=== PATIENT | female | born 1995 | race Caucasian/White ===

== ENCOUNTER 2019-08-12 18:49 | Emergency (ER) | payer OTHER, SELFPAY ==
[2019-08-12 19:11] VITALS: BP 118/102; PULSE 100; RESP 16; TEMP 36.7; O2SAT 97; BMI 24.0
--- NOTE | 2019-08-12 19:26 | ED_ITS ---
HPI - Headache General: Chief Complaint: Headache Stated Complaint: headache Time Seen by Provider: 08/12/19 19:18 History of Present Illness: HPI Narrative: Patient complains about a headache for the last 5 to 6 days. Was seen at the urgent care and received Toradol Benadryl and dexamethasone. She did get better that evening after the shot but the headache came back with a vengeance today. Does relate back to a possible similar symptoms of previous migraines. MD elicited complaint: headache and migraine Onset (ago): day(s) (5) Onset description: gradually Quality & Timing: aching Exacerbating factors: none Associated symptoms: Deny chest pain, fever(s), nausea, rash or vomiting Review of Systems Const: Denies: fever, chills or body aches Eyes: Denies: change in vision or blurry vision ENMT: Denies: throat pain or nasal congestion Card: Denies: chest pain or shortness of breath on exertion Resp: Denies: shortness of breath, productive cough or non-productive cough GI: Denies: abdominal pain, nausea or vomiting Musc: Reports: neck pain; Denies: extremity pain Skin/Breast: Denies: rash Neuro: Reports: headache Psych: Denies: anxiety or depression Adonay/Lymph: Denies: easy bruising PFSH ED PFSH: Statuses (acute, chronic, etc) shown below reflect problem list status as previously entered and may not be historically accurate Social History (Updated 08/11/19 @ 13:45 by Mirella Castillo LPN) Smoking and tobacco status: current every day smoker Female Reproductive History: Date of last menstrual period: 08/04/19 Physical Exam Const: COMMON NORMALS: no apparent distress, average body habitus and oriented x3 HENMT: COMMON NORMALS: normocephalic HEAD & SCALP: normal to inspection and normocephalic FACE & SINUS: normal facial exam Eye: COMMON NORMALS: conjunctivae normal GENERAL EYE: normal appearance of both eyes CONJUNCTIVA: Yes conjunctivae normal Neck/C-Spine: COMMON NORMALS: no JVD Chest: COMMONS NORMALS: inspection of chest normal Resp: COMMON NORMALS: normal respiratory effort and clear to auscultation bilaterally AUSCULTATION: clear to auscultation bilaterally Cardio: COMMON NORMALS: no JVD, regular rate and regular rhythm RATE: regular rate RHYTHM: regular rhythm GI: COMMON NORMALS: normal to inspection, nondistended, normoactive bowel sounds Back/Pelvis: OTHER: Neck soreness consistent with tension type headache symptoms Extremity: COMMON NORMALS: normal to inspection and full ROM Neuro: COMMON NORMALS: oriented x3 and CN's II-XII intact bilaterally Course Vital Signs: Vital signs: Vital Signs Temperature 98.0 F 08/12/19 19:11 Pulse Rate 100 08/12/19 19:11 Respiratory Rate 16 08/12/19 19:11 Blood Pressure 118/102 08/12/19 19:11 Pulse Oximetry 97 08/12/19 19:11 Discharge Plan Discharge Prescriptions: No Action acetaminophen 325 mg capsule 325 mg PO ONCE Qty: 1 RF: 0 albuterol sulfate 90 mcg/actuation aerosol powdr breath activated 1 inh INHALATION ONCE RF: 0 dextroamphetamine-amphetamine [Adderall] 20 mg tablet 20 mg PO QDAY RF: 0 Coding Level of Care Code ED 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
[2019-08-12] MEDS: SUMAtriptan 6 mg/0.5 mL SDV SUBCUT (19:42)
[2019-08-12] MEDS: ondansetron 2 mg/ML SDV 2 mL 4 MG IM (19:47)
[2019-08-12 19:50] VITALS: BP 111/67; PULSE 78; RESP 16; O2SAT 96
[2019-08-12] MEDS: cyclobenzaprine 10 mg Tablet PO (20:58)
[2019-08-12] MEDS: predniSONE 20 mg Tablet PO (20:59)
[2019-08-12 21:04] VITALS: BP 117/71; PULSE 107; RESP 16; TEMP 37.1; O2SAT 97
== END 2019-08-12 21:06 | disposition home or self-care (01) ==
PROVIDERS: Emergency Provider Nurse Practitioner Family; Family Provider Family Medicine; PCP Family Medicine
DX: R51 Headache (principal); F17.210 Nicotine dependence, cigarettes, uncomplicated
CPT/HCPCS: 96372; 99281; J2405; J3030; J7512

== ENCOUNTER 2019-11-13 17:17 | Inpatient (IN) | payer OTHER, SELFPAY ==
[2019-11-13 17:24] VITALS: BP 127/80; PULSE 109; RESP 18; TEMP 37; O2SAT 97; BMI 24.9
--- NOTE | 2019-11-13 17:28 | W.ED.PSYCH ---
HPI - Psych General: Chief Complaint: Psychiatric Symptoms Stated Complaint: mhe Time Seen by Provider: 11/13/19 17:37 Source: patient Mode of arrival: ambulatory Limitations: no limitations History of Present Illness: HPI Narrative: 23-year-old female who is here stating she has been having suicidal thoughts over the last 4 to 5 days. States been under a lot of stress lately and just started antidepressants yesterday but she states she has had increasing suicidal thoughts. She has had no history of suicide attempt in the past. MD complaint: suicidal ideation Onset (ago): day(s) Duration: constant Relieving factors: none Exacerbating factors: none Associated psychiatric symptoms: depression and suicidal ideation Associated symptoms: Reports depression and suicidal ideation Treatments prior to arrival: none Review of Systems Const: Denies: fever, chills, body aches or change in appetite Eyes: Denies: blurry vision or eye discomfort ENMT: Denies: throat pain or dental pain Card: Denies: chest pain Resp: Denies: shortness of breath GI: Denies: abdominal pain, nausea, vomiting or diarrhea : Denies: painful urination Musc: Denies: neck pain or back pain Skin/Breast: Denies: rash Neuro: Denies: headache Psych: Reports: depression and suicidal ideation Adonay/Lymph: Denies: easy bruising All/Imm: Denies: hives PFS ED PFSH: Social History (Updated 08/11/19 @ 13:45 by Mirella Castillo LPN) Smoking and tobacco status: former smoker Female Reproductive History: Date of last menstrual period: 08/04/19 Physical Exam Const: COMMON NORMALS: no apparent distress, oriented x3 and healthy appearing HENMT: COMMON NORMALS: normocephalic and head/scalp atraumatic HEAD & SCALP: normocephalic and atraumatic Eye: COMMON NORMALS: PERRL and EOMs intact bilaterally PUPIL: Yes PERRL Neck/C-Spine: COMMON NORMALS: full ROM and supple Chest: COMMONS NORMALS: inspection of chest normal and palpation of chest normal Resp: COMMON NORMALS: normal respiratory effort, no retractions, no use of accessory muscles and clear to auscultation bilaterally AUSCULTATION: clear to auscultation bilaterally Cardio: COMMON NORMALS: regular rate, regular rhythm and no murmurs RATE: regular rate RHYTHM: regular rhythm GI: COMMON NORMALS: normal to inspection, nondistended, normoactive bowel sounds, soft to palpation, non-tender and no masses PALPATION: Yes soft Extremity: COMMON NORMALS: normal to inspection and full ROM Neuro: COMMON NORMALS: oriented x3, moves all extremities and no focal motor deficits Psych: COMMON NORMALS: mental status grossly normal, thought process normal and cooperative MOOD & AFFECT: Yes depressed mood THOUGHT PROCESS: normal thought process THOUGHT CONTENT: Yes suicidality Skin: COMMON NORMALS: no rashes or lesions noted and no wounds GENERAL SKIN EXAM: no rashes or lesions noted MDM - Psych MDM Narrative: Medical decision making narrative: Patient presents here with suicidal ideations and voluntarily requesting admission. Patient is medically cleared I spoke to psychiatrist Dr. May and will admit to the Neuropsych Unit. Lab Data: Labs: Lab Results 11/13/19 11/13/19 Range/Units 17:54 17:54 WBC 9.7 (4.0-10.0) 10^3/ uL RBC 4.12 (4.1-5.3) 10^6/u L Hgb 14.6 (11.5-15.3) g/dL Hct 40.3 (37.0-47.0) % MCV 97.8 (81-99) fL MCH 35.4 H (28.0-34.0) pg MCHC 36.2 H (30.0-36.0) g/dL RDW 10.9 L (12.1-15.1) % Plt Count 334 (130-400) 10^3/c mm MPV 9.5 (7.4-10.4) fL Neut % (Auto) 61.2 % Lymph % (Auto) 32.5 % Armstrong % (Auto) 5.3 % Eos % (Auto) 0.4 % Baso % (Auto) 0.4 % Neut # (Auto) 5.9 (1.8-7.7) 10^3/u L Lymph # (Auto) 3.2 (0.8-4.8) 10^3/u L Armstrong # (Auto) 0.5 (0.2-0.9) 10^3/u L Eos # (Auto) 0.0 (0.0-0.8) 10^3/u L Baso # (Auto) 0.0 (0.0-0.1) 10^3/u L Nucleated RBC % (a uto) 0 % Nucleated RBCs # 0.0 /100WBC Sodium 139 (136-145) mmol/L Potassium 3.4 L (3.5-5.1) mmol/L Chloride 102 (98-107) mmol/L Carbon Dioxide 24 (22-29) mmol/L Anion Gap 16.4 (5-19) BUN 12 (6-20) mg/dL Creatinine 0.6 (0.5-0.9) mg/dL GFR Calculation 121.8 (90-130) mL/min Glucose 138 H (65-115) mg/dL Calculated Osmolal ity 286 (285-295) mOsm/k g Calcium 9.6 (8.5-10.5) mg/dL Total Bilirubin 1.0 (0.15-1.2) mg/dL AST 16 (0-32) U/L ALT 8 (0-33) U/L Alkaline Phosphata se 55 (35-105) IU/L Total Protein 7.5 (6.6-8.7) g/dL Albumin 4.6 (3.5-5.2) g/dL Globulin 2.9 (1.3-4.6) g/dL Discharge Plan Discharge Patient Disposition: Admitted As Inpatient Clinical Impression: Suicidal ideation Condition: Stable Referrals: Racquel Riggins MD [Primary Care Provider] - Coding Level of Care Code ED Furniture Painter for Chg Fwd Exam Comprehensive
[2019-11-13 17:48] VITALS: RESP 18
[2019-11-13 18:36] LABS: Basophils % 0.4 %; Eosinophils % 0.4 %; Hematocrit 40.3 % (37.0-47.0); Hemoglobin 14.6 g/dL (11.5-15.3); Lymphocytes # 3.2 10^3/uL (0.8-4.8); Lymphocytes % 32.5 %; Mean Corpuscular HGB Conc 36.2 g/dL (30.0-36.0); Mean Corpuscular Hemoglobin 35.4 pg (28.0-34.0); Mean Corpuscular Volume 97.8 fL (81-99); Mean Platelet Volume 9.5 fL (7.4-10.4); Monocytes # 0.5 10^3/uL (0.2-0.9); Monocytes % 5.3 %; Neutrophils # 5.9 10^3/uL (1.8-7.7); Neutrophils % 61.2 %; Nucleated Red Blood Cells % 0 %; Platelet Count 334 10^3/cmm (130-400); Red Blood Count 4.12 10^6/uL (4.1-5.3); Red Cell Distribution Width 10.9 % (12.1-15.1); White Blood Count 9.7 10^3/uL (4.0-10.0)
[2019-11-13 19:00] VITALS: RESP 16
[2019-11-13 19:06] LABS: Alanine Aminotransferase 8 U/L (0-33); Albumin Level 4.6 g/dL (3.5-5.2); Alkaline Phosphatase 55 IU/L (35-105); Anion Gap 16.4 (5-19); Aspartate Amino Transferase 16 U/L (0-32); Blood Urea Nitrogen 12 mg/dL (6-20); Calcium 9.6 mg/dL (8.5-10.5); Carbon Dioxide 24 mmol/L (22-29); Chloride 102 mmol/L (98-107); Creatinine Clr Calc Pharmacy 133.7917; Globulin 2.9 g/dL (1.3-4.6); Glomerular Filtration Rate 121.8 mL/min (90-130); Glucose 138 mg/dL (65-115); Osmolality Calculated 286 mOsm/kg (285-295); Potassium 3.4 mmol/L (3.5-5.1); Sodium 139 mmol/L (136-145); Total Protein 7.5 g/dL (6.6-8.7)
[2019-11-13 19:46] LABS: HCG Qualitative Urine. Negative (Negative)
[2019-11-13 19:47] LABS: Amphetamines Screen Urine Negative (Negative); Barbiturates Screen Urine Negative (Negative); Benzodiazepines Screen Urine Negative (Negative); Cocaine Screen Urine Negative (Negative); Opiate Screen Urine Negative (Negative); PCP Screen Urine Negative (Negative); THC Screen Urine Positive (Negative)
[2019-11-13 20:03] LABS: Acetaminophen < 5.0 ug/mL (10-30); Alcohol Level < 10 mg/dL (0-10); Salicylate < 0.3 mg/dL (3-10)
[2019-11-13 21:30] VITALS: BP 130/84; PULSE 100; RESP 18; O2SAT 98
--- NOTE | 2019-11-13 21:48 | PC.NURSE ---
Pt arrived to unit at 2147 via wheel chair from ER. Pt transfered to [facility] in hallway per self without difficulty.
[2019-11-13 22:00] VITALS: BP 104/72; PULSE 86; RESP 22; TEMP 37.3; O2SAT 97
[2019-11-13] MEDS: trazodone 50 mg Tablet PO (22:09)
[2019-11-13] MEDS: OLANZapine ODT 5 MG TABLET PO (22:09)
[2019-11-14 05:46] VITALS: BP 96/64; PULSE 76; RESP 18; TEMP 36.8; O2SAT 97
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
[2019-11-14 13:30] VITALS: BP 96/59; PULSE 82; RESP 18; TEMP 36.9; O2SAT 97
[2019-11-14] MEDS: buPROPion XL (24 HR) 150 mg Tablet PO (14:00)
[2019-11-14 21:39] VITALS: BP 92/65; PULSE 97; RESP 17; TEMP 37.1; O2SAT 95
[2019-11-15 06:00] VITALS: BP 100/71; PULSE 93; RESP 16; TEMP 36.7; O2SAT 97
[2019-11-15] MEDS: buPROPion XL (24 HR) 150 mg Tablet PO (08:13)
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
[2019-11-15 12:05] VITALS: BP 100/71; PULSE 93; RESP 16; TEMP 36.7; O2SAT 97
== END 2019-11-15 13:11 | disposition home or self-care (01) | DRG 881 ==
LOC: ER 19:39 → NP 19:56
PROVIDERS: Admitting Provider Psychiatry & Neurology Psychiatry; Emergency Provider Emergency Medicine; Family Provider Family Medicine; PCP Family Medicine; Visit Provider Psychiatry & Neurology Psychiatry
DX: F32.9 Major depressive disorder, single episode, unspecified (principal); R45.851 Suicidal ideations; F43.10 Post-traumatic stress disorder, unspecified; Z81.8 Family history of other mental and behavioral disorders
CPT/HCPCS: 12345; 36415; 80053; 80306; 80307; 81025; 85025; 99284

== ENCOUNTER 2020-04-16 15:56 | Emergency (ER) | payer OTHER, SELFPAY ==
--- NOTE | 2020-04-16 15:58 | XRR_ITS ---
PROCEDURE INFORMATION: Exam: XR Chest, 1 View Exam date and time: 04/16/2020 4:22 PM Age: 24 years old Clinical indication: Smoker's cough; Patient HX: Covid precaustions TECHNIQUE: Imaging protocol: XR of the chest Views: 1 view. COMPARISON: CR Chest 1 [place] [id number] 06/07/2019 2:27 PM FINDINGS: Lungs: Unremarkable. No consolidation. Pleural space: Unremarkable. No pleural effusion. No pneumothorax. Heart/Mediastinum: Unremarkable. No cardiomegaly. Bones/joints: Unremarkable. XR/XR chest 1V portable [id number] IMPRESSION: No acute findings.
[2020-04-16 15:59] VITALS: BP 112/80; PULSE 78; RESP 18; TEMP 37; O2SAT 98; BMI 24.0
--- NOTE | 2020-04-16 16:13 | ED_ITS ---
HPI - Fever General: Chief Complaint: Fever Stated Complaint: COVID SYMPTOMS Time Seen by Provider: 04/16/20 16:05 Source: patient Mode of arrival: ambulatory Limitations: no limitations History of Present Illness: HPI Narrative: 24-year-old female has had a cough fever along with shortness of breath over the last 5 days. 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 Patient had a COVID swab done this morning. She states she had slight worsening dyspnea. Patient here is in no distress and has a pulse ox of 98% on room air. Patient is afebrile here. She denies any sore throat. Denies any chest pain. Denies any worsening or improving factors. Associated symptoms: Deny abdominal pain, chest pain, diarrhea, dysuria, headache(s), nausea or vomiting Review of Systems Const: Reports: fever(s) Eyes: Denies: blurry vision or eye discomfort ENMT: Denies: throat pain or dental pain Card: Denies: chest pain Resp: Reports: dyspnea and non-productive cough GI: Denies: abdominal pain, nausea, vomiting or diarrhea : Denies: dysuria Musc: Denies: neck pain or back pain Skin/Breast: Denies: rash Neuro: Denies: headache(s) Psych: Denies: depression Adonay/Lymph: Denies: easy bruising All/Imm: Denies: urticaria PFS ED PFSH: Social History (Updated 08/11/19 @ 13:45 by Mirella Castillo LPN) Smoking and tobacco status: former smoker Female Reproductive History: Date of last menstrual period: 04/02/20 Physical Exam Const: COMMON NORMALS: no acute distress, patient oriented x3 and healthy appearing HENMT: COMMON NORMALS: normocephalic and atraumatic HEAD & SCALP: normocephalic and atraumatic Eye: COMMON NORMALS: Equal, round and reactive pupils present and EOMs intact bilaterally PUPIL: Yes Equal, round and reactive pupils present Neck/C-Spine: COMMON NORMALS: full ROM and supple Chest: COMMONS NORMALS: normal inspection of the chest and normal palpation of entire chest wall Resp: COMMON NORMALS: normal respiratory effort, No retractions, No use of accessory muscles and clear to auscultation bilaterally AUSCULTATION: clear to auscultation bilaterally Cardio: COMMON NORMALS: regular rate, regular rhythm and No murmurs present (Cardio) RATE: regular rate RHYTHM: regular rhythm GI: COMMON NORMALS: Normal to inspection, nondistended, normoactive bowel sounds present, Soft to palpation, non-tender and no masses PALPATION: Yes Soft to palpation Extremity: COMMON NORMALS: normal to inspection and full ROM Neuro: COMMON NORMALS: patient oriented x3, moves all extremities and no focal motor deficits Psych: COMMON NORMALS: mental status grossly normal, Normal thought process present and cooperative THOUGHT PROCESS: Normal thought process present Skin: COMMON NORMALS: no rashes or lesions noted and no wounds GENERAL SKIN EXAM: no rashes or lesions noted Course Vital Signs: Vital signs: Vital Signs Temperature 98.6 F 04/16/20 15:59 Pulse Rate 78 04/16/20 15:59 Respiratory Rate 18 04/16/20 15:59 Blood Pressure 112/80 04/16/20 15:59 Pulse Oximetry 98 04/16/20 15:59 MDM - Fever MDM Narrative: Medical decision making narrative: Patient presents here with cough likely upper respiratory infection. Patient may have COVID is in no severe distress. She is stable for discharge and her x-ray here is normal. She is to self quarantine until she has recovered result back. Imaging Data^: CXR: Attestation: I personally reviewed and interpreted this imaging study as follows: My impression: No acute abnormality Discharge Plan Discharge Patient Disposition: Home Clinical Impression: Upper respiratory infection Condition: Stable Prescriptions: No Action albuterol sulfate 90 mcg/actuation aerosol powdr breath activated 1 inh INHALATION ONCE RF: 0 dextroamphetamine-amphetamine [Adderall] 20 mg tablet 20 mg PO QDAY RF: 0 cyclobenzaprine 5 mg tablet 5 mg PO TID PRN (Reason: muscle spasm) Qty: 14 RF: 0 hzpmshytwv-pdnborawtbnjo-hqkp [Esgic] 50-325-40 mg tablet 1 tab PO Q6H PRN (Reason: pain) Qty: 10 RF: 0 bupropion HCl 150 mg Tablet Extended Release 24 Hr 150 mg PO DAILY 30 Days Qty: 30 RF: 2 trazodone 50 mg Tablet 50 mg PO BEDTIME PRN (Reason: Sleep) 30 Days Qty: 30 RF: 1 Discharge Orders: Discharge Order (Routine); Ordered 04/16/20 Ordered By: Korby Fritz Referrals: Racquel Riggins MD [Primary Care Provider] - 1-3 days Discharge Diet: Advance as tolerated Discharge Activity: Resume usual activity Patient Instructions: Upper Respiratory Infection (ED) Coding Level of Care Code ED Compensation And Benefits Advisor for Chg Fwd Exam Comprehensive
[2020-04-16 16:33] VITALS: BP 112/80; PULSE 78; RESP 18; TEMP 37; O2SAT 96
== END 2020-04-16 16:35 | disposition home or self-care (01) ==
PROVIDERS: Emergency Provider Emergency Medicine; Family Provider Family Medicine; PCP Family Medicine
DX: Z20.828 Contact with and (suspected) exposure to other viral communicable diseases (principal); Z87.891 Personal history of nicotine dependence
CPT/HCPCS: 12345; 71045; 99281; 99282

== ENCOUNTER 2020-08-11 13:28 | Emergency (ER) | payer OTHER, SELFPAY ==
[2020-08-11 14:32] VITALS: BP 121/74; PULSE 116; RESP 14; TEMP 38.8; O2SAT 99; BMI 24.9
--- NOTE | 2020-08-11 14:48 | XR_ITS ---
WS: [id number] Exam: XR chest 1V portable [id number] Date/Time of Exam: 08/11/2020 2:52 PM Reason For Exam: fever Comparison 04/16/2020. Findings: The lungs are clear and fully expanded. Costophrenic angles are sharp. No infiltrates. Bronchovascula r relief appears normal. Cardiac silhouette is unremarkable. Bony elements are intact. XR/XR chest 1V portable [id number] IMPRESSION: Unremarkable chest radiograph.
[2020-08-11 15:28] VITALS: BP 121/74; PULSE 116; RESP 16; O2SAT 99
--- NOTE | 2020-08-11 15:58 | ED_ITS ---
Documented by User: ALISON Conrad 08/11/20 16:00 HPI - General Adult General: Chief complaint: General Medical Stated complaint: ABD PAIN/N/FEVER Time Seen by Provider: 08/11/20 15:34 History of Present Illness: HPI narrative: Kidney pain for the last week fever for the last 2 days some problems urinating. MD complaint: Kidney infection Onset (ago): day(s) Severity: moderate Severity scale (1-10): 5 Quality: aching Pain Consistency: constant Associated symptoms: Reports fevers/chills and nausea; Deny chest pain, dyspnea, headache(s) or rash Review of Systems Const: Reports: fever(s) and chills; Denies: body aches Eyes: Denies: change in vision or blurry vision ENMT: Denies: throat pain or nasal congestion Card: Denies: chest pain or dyspnea on exertion Resp: Denies: dyspnea, productive cough or non-productive cough GI: Reports: nausea : Reports: flank pain and urinary urgency Musc: Denies: extremity pain Skin/Breast: Denies: rash Neuro: Denies: headache(s) Psych: Denies: anxiety or depression Adonay/Lymph: Denies: easy bruising PFSH ED PFSH: Social History Smoking and tobacco status: former smoker Female Reproductive History: Date of last menstrual period: 04/02/20 Physical Exam Const: COMMON NORMALS: no acute distress, average body habitus and patient oriented x3 HENMT: COMMON NORMALS: normocephalic HEAD & SCALP: normal to inspection and normocephalic FACE & SINUS: normal facial exam Eye: COMMON NORMALS: conjunctivae normal GENERAL EYE: appearance normal, both eyes and all related structures CONJUNCTIVA: Yes conjunctivae normal Neck/C-Spine: COMMON NORMALS: no JVD Chest: COMMONS NORMALS: normal inspection of the chest Resp: COMMON NORMALS: normal respiratory effort and clear to auscultation bilaterally AUSCULTATION: clear to auscultation bilaterally Cardio: COMMON NORMALS: no JVD, regular rate and regular rhythm RATE: regular rate RHYTHM: regular rhythm GI: COMMON NORMALS: Normal to inspection, nondistended, normoactive bowel sounds present : BLADDER/KIDNEY EXAM: Yes CVA tenderness Back/Pelvis: GENERAL BACK: Yes CVA tenderness Extremity: COMMON NORMALS: normal to inspection and full ROM Neuro: COMMON NORMALS: patient oriented x3 Course Vital Signs: Vital signs: Vital Signs Temperature 101.9 F H 08/11/20 14:32 Pulse Rate 112 H 08/11/20 16:28 Respiratory Rate 18 08/11/20 16:28 Blood Pressure 102/69 08/11/20 16:28 Pulse Oximetry 98 08/11/20 16:28 [facility] - General Adult Lab Data: Labs: Lab Results 08/11/20 08/11/20 08/11/20 Range/Units 15:10 16:10 16:20 WBC 14.9 H (4.0-10.0) 10^3/ uL RBC 4.03 L (4.1-5.3) 10^6/u L Hgb 14.4 (11.5-15.3) g/dL Hct 41.2 (37.0-47.0) % MCV 102.2 H (81-99) fL MCH 35.7 H (28.0-34.0) pg MCHC 35.0 (30.0-36.0) g/dL RDW 11.0 L (12.1-15.1) % Plt Count 270 (130-400) 10^3/c mm MPV 9.8 (7.4-10.4) fL Neut % (Auto) 77.6 % Lymph % (Auto) 12.9 % [place] % (Auto) 8.9 % Eos % (Auto) 0.0 % Baso % (Auto) 0.3 % Neut # (Auto) 11.59 H (1.8-7.7) 10^3/u L Lymph # (Auto) 1.9 (0.8-4.8) 10^3/u L [place] # (Auto) 1.3 H (0.2-0.9) 10^3/u L Eos # (Auto) 0.0 (0.0-0.8) 10^3/u L Baso # (Auto) 0.0 (0.0-0.1) 10^3/u L Nucleated RBC % (a uto) 0 % Nucleated RBCs # 0.0 /100WBC Sodium (136-145) mmol/L Potassium (3.5-5.1) mmol/L Chloride (98-107) mmol/L Carbon Dioxide (22-29) mmol/L Anion Gap (5-19) BUN (6-20) mg/dL Creatinine (0.5-0.9) mg/dL GFR Calculation (90-130) mL/min Glucose (65-115) mg/dL Calculated Osmolal ity (285-295) mOsm/k g Lactate (0.5-2.2) mmol/L Calcium (8.5-10.5) mg/dL Total Bilirubin (0.15-1.2) mg/dL AST (0-32) U/L ALT (0-33) U/L Alkaline Phosphata se (35-105) IU/L Total Protein (6.6-8.7) g/dL Albumin (3.5-5.2) g/dL Globulin (1.3-4.6) g/dL HCG, Qual Negative (Negative) Urine Color Yellow (Yellow) Urine Appearance Cloudy (CLEAR) Urine pH 5 (5-7) Ur Specific Gravit y 1.020 (1.005-1.030) Urine Protein Trace (Negative) Urine Glucose (UA) Norm (Normal) Urine Ketones 3+ H (Negative) Urine Blood 3+ H (Negative) Urine Nitrate Negative (Negative) Urine Bilirubin Neg (Negative) Urine Urobilinogen Norm (Negative) mg/dL Ur Leukocyte Destinee ase 2+ H (Negative) Urine RBC 5-10 H (0-2) /hpf Urine WBC 40-55 H (0-5) /hpf Ur Squamous Epith Cells 5-10 H (0-5) /hpf Amorphous Sediment Not Reportable Urine Bacteria 2+ H (NONE) /hpf 08/11/20 08/11/20 Range/Units 16:20 16:20 WBC (4.0-10.0) 10^3/ uL RBC (4.1-5.3) 10^6/u L Hgb (11.5-15.3) g/dL Hct (37.0-47.0) % MCV (81-99) fL MCH (28.0-34.0) pg MCHC (30.0-36.0) g/dL RDW (12.1-15.1) % Plt Count (130-400) 10^3/c mm MPV (7.4-10.4) fL Neut % (Auto) % Lymph % (Auto) % [place] % (Auto) % Eos % (Auto) % Baso % (Auto) % Neut # (Auto) (1.8-7.7) 10^3/u L Lymph # (Auto) (0.8-4.8) 10^3/u L [place] # (Auto) (0.2-0.9) 10^3/u L Eos # (Auto) (0.0-0.8) 10^3/u L Baso # (Auto) (0.0-0.1) 10^3/u L Nucleated RBC % (a uto) % Nucleated RBCs # /100WBC Sodium 135 L (136-145) mmol/L Potassium 4.1 (3.5-5.1) mmol/L Chloride 97 L (98-107) mmol/L Carbon Dioxide 21 L (22-29) mmol/L Anion Gap 21.1 H (5-19) BUN 10 (6-20) mg/dL Creatinine 0.7 (0.5-0.9) mg/dL GFR Calculation 101.1 (90-130) mL/min Glucose 70 (65-115) mg/dL Calculated Osmolal ity 277 L (285-295) mOsm/k g Lactate 1.0 (0.5-2.2) mmol/L Calcium 9.0 (8.5-10.5) mg/dL Total Bilirubin 1.4 H (0.15-1.2) mg/dL AST 11 (0-32) U/L ALT 7 (0-33) U/L Alkaline Phosphata se 56 (35-105) IU/L Total Protein 7.2 (6.6-8.7) g/dL Albumin 3.8 (3.5-5.2) g/dL Globulin 3.4 (1.3-4.6) g/dL HCG, Qual (Negative) Urine Color (Yellow) Urine Appearance (CLEAR) Urine pH (5-7) Ur Specific Gravit y (1.005-1.030) Urine Protein (Negative) Urine Glucose (UA) (Normal) Urine Ketones (Negative) Urine Blood (Negative) Urine Nitrate (Negative) Urine Bilirubin (Negative) Urine Urobilinogen (Negative) mg/dL Ur Leukocyte Destinee ase (Negative) Urine RBC (0-2) /hpf Urine WBC (0-5) /hpf Ur Squamous Epith Cells (0-5) /hpf Amorphous Sediment Urine Bacteria (NONE) /hpf Discharge Plan Discharge Patient Disposition: Home Clinical Impression: Pyelonephritis Condition: Stable Prescriptions: New ciprofloxacin HCl 500 mg tablet 500 mg PO Q12H 7 Days Qty: 14 RF: 0 No Action albuterol sulfate 90 mcg/actuation aerosol powdr breath activated 1 inh INHALATION ONCE RF: 0 dextroamphetamine-amphetamine [Adderall] 20 mg tablet 20 mg PO QDAY RF: 0 cyclobenzaprine 5 mg tablet 5 mg PO TID PRN (Reason: muscle spasm) Qty: 14 RF: 0 elfywlhqen-difiqgwcqiqgu-dxoa [Esgic] 50-325-40 mg tablet 1 tab PO Q6H PRN (Reason: pain) Qty: 10 RF: 0 bupropion HCl 150 mg Tablet Extended Release 24 Hr 150 mg PO DAILY 30 Days Qty: 30 RF: 2 trazodone 50 mg Tablet 50 mg PO BEDTIME PRN (Reason: Sleep) 30 Days Qty: 30 RF: 1 Discharge Orders: Discharge ED (Routine); Ordered 08/11/20 Ordered By: Alex Spence Referrals: Racquel Riggins MD [Primary Care Provider] - Discharge Diet: Regular Discharge Activity: Increase activity as tolerated Patient Instructions: Acute Pyelonephritis (ED) Activity Restrictions/Additional Instructions: Follow-up with medical provider as directed in 5 to 7 days for reevaluation. Take full course of antibiotic as prescribed. Take eton-ibf-hboeztq Tylenol or ibuprofen to help with any pain or fevers. Drink plenty of fluids and stay hydrated. Return to the ER or your medical provider if condition worsens. Please read and understand discharge instructions. If any questions, please ask. Sign Out Sign Out Data: Patient Sign Out occurred on 08/11/20 at 17:04. Patient's care was discussed, and care was transferred from to LICHA Rodriguez. Coding Level of Care Code ED Gas Furnace Installer for Coltekaterina Fwd Exam Comprehensive Documented by User: LICHA Rodriguez 08/11/20 23:40 HPI - General Adult General: Chief complaint: General Medical Stated complaint: ABD PAIN/N/FEVER Time Seen by Provider: 08/11/20 15:34 PFS ED PFSH: Social History Smoking and tobacco status: former smoker Course Vital Signs: Vital signs: Vital Signs Temperature 101.9 F H 08/11/20 14:32 Pulse Rate 112 H 08/11/20 16:28 Respiratory Rate 18 08/11/20 16:28 Blood Pressure 102/69 08/11/20 16:28 Pulse Oximetry 98 08/11/20 16:28 MDM - General Adult MDM Narrative: Medical decision making narrative: Patient is a 24-year-old female comes to the ED with fever, flank pain and urinary urgency. Patient has CVA tenderness upon exam. White blood cell count 14.9. The rest of CBC and CMP was unremarkable. Urinalysis showed signs of UTI. Patient was given IV fluids and Rocephin while here in the ED. Patient was healthy and stable for discharge. Patient diagnosed with pyelonephritis and discharged with a prescription for ciprofloxacin. She was told to follow-up with PCP in 5 to 7 days for reevaluation. Return to ED precautions given. Patient understood and agree with plan. Lab Data: Attestation: I reviewed the patient's lab results. Labs: Lab Results 08/11/20 08/11/20 08/11/20 Range/Units 15:10 16:10 16:20 WBC 14.9 H (4.0-10.0) 10^3/ uL RBC 4.03 L (4.1-5.3) 10^6/u L Hgb 14.4 (11.5-15.3) g/dL Hct 41.2 (37.0-47.0) % MCV 102.2 H (81-99) fL MCH 35.7 H (28.0-34.0) pg MCHC 35.0 (30.0-36.0) g/dL RDW 11.0 L (12.1-15.1) % Plt Count 270 (130-400) 10^3/c mm MPV 9.8 (7.4-10.4) fL Neut % (Auto) 77.6 % Lymph % (Auto) 12.9 % [place] % (Auto) 8.9 % Eos % (Auto) 0.0 % Baso % (Auto) 0.3 % Neut # (Auto) 11.59 H (1.8-7.7) 10^3/u L Lymph # (Auto) 1.9 (0.8-4.8) 10^3/u L [place] # (Auto) 1.3 H (0.2-0.9) 10^3/u L Eos # (Auto) 0.0 (0.0-0.8) 10^3/u L Baso # (Auto) 0.0 (0.0-0.1) 10^3/u L Nucleated RBC % (a uto) 0 % Nucleated RBCs # 0.0 /100WBC Sodium (136-145) mmol/L Potassium (3.5-5.1) mmol/L Chloride (98-107) mmol/L Carbon Dioxide (22-29) mmol/L Anion Gap (5-19) BUN (6-20) mg/dL Creatinine (0.5-0.9) mg/dL GFR Calculation (90-130) mL/min Glucose (65-115) mg/dL Calculated Osmolal ity (285-295) mOsm/k g Lactate (0.5-2.2) mmol/L Calcium (8.5-10.5) mg/dL Total Bilirubin (0.15-1.2) mg/dL AST (0-32) U/L ALT (0-33) U/L Alkaline Phosphata se (35-105) IU/L Total Protein (6.6-8.7) g/dL Albumin (3.5-5.2) g/dL Globulin (1.3-4.6) g/dL HCG, Qual Negative (Negative) Urine Color Yellow (Yellow) Urine Appearance Cloudy (CLEAR) Urine pH 5 (5-7) Ur Specific Gravit y 1.020 (1.005-1.030) Urine Protein Trace (Negative) Urine Glucose (UA) Norm (Normal) Urine Ketones 3+ H (Negative) Urine Blood 3+ H (Negative) Urine Nitrate Negative (Negative) Urine Bilirubin Neg (Negative) Urine Urobilinogen Norm (Negative) mg/dL Ur Leukocyte Destinee ase 2+ H (Negative) Urine RBC 5-10 H (0-2) /hpf Urine WBC 40-55 H (0-5) /hpf Ur Squamous Epith Cells 5-10 H (0-5) /hpf Amorphous Sediment Not Reportable Urine Bacteria 2+ H (NONE) /hpf 08/11/20 08/11/20 Range/Units 16:20 16:20 WBC (4.0-10.0) 10^3/ uL RBC (4.1-5.3) 10^6/u L Hgb (11.5-15.3) g/dL Hct (37.0-47.0) % MCV (81-99) fL MCH (28.0-34.0) pg MCHC (30.0-36.0) g/dL RDW (12.1-15.1) % Plt Count (130-400) 10^3/c mm MPV (7.4-10.4) fL Neut % (Auto) % Lymph % (Auto) % [place] % (Auto) % Eos % (Auto) % Baso % (Auto) % Neut # (Auto) (1.8-7.7) 10^3/u L Lymph # (Auto) (0.8-4.8) 10^3/u L [place] # (Auto) (0.2-0.9) 10^3/u L Eos # (Auto) (0.0-0.8) 10^3/u L Baso # (Auto) (0.0-0.1) 10^3/u L Nucleated RBC % (a uto) % Nucleated RBCs # /100WBC Sodium 135 L (136-145) mmol/L Potassium 4.1 (3.5-5.1) mmol/L Chloride 97 L (98-107) mmol/L Carbon Dioxide 21 L (22-29) mmol/L Anion Gap 21.1 H (5-19) BUN 10 (6-20) mg/dL Creatinine 0.7 (0.5-0.9) mg/dL GFR Calculation 101.1 (90-130) mL/min Glucose 70 (65-115) mg/dL Calculated Osmolal ity 277 L (285-295) mOsm/k g Lactate 1.0 (0.5-2.2) mmol/L Calcium 9.0 (8.5-10.5) mg/dL Total Bilirubin 1.4 H (0.15-1.2) mg/dL AST 11 (0-32) U/L ALT 7 (0-33) U/L Alkaline Phosphata se 56 (35-105) IU/L Total Protein 7.2 (6.6-8.7) g/dL Albumin 3.8 (3.5-5.2) g/dL Globulin 3.4 (1.3-4.6) g/dL HCG, Qual (Negative) Urine Color (Yellow) Urine Appearance (CLEAR) Urine pH (5-7) Ur Specific Gravit y (1.005-1.030) Urine Protein (Negative) Urine Glucose (UA) (Normal) Urine Ketones (Negative) Urine Blood (Negative) Urine Nitrate (Negative) Urine Bilirubin (Negative) Urine Urobilinogen (Negative) mg/dL Ur Leukocyte Destinee ase (Negative) Urine RBC (0-2) /hpf Urine WBC (0-5) /hpf Ur Squamous Epith Cells (0-5) /hpf Amorphous Sediment Urine Bacteria (NONE) /hpf Discharge Plan Discharge Patient Disposition: Home Clinical Impression: Pyelonephritis Condition: Stable Prescriptions: New ciprofloxacin HCl 500 mg tablet 500 mg PO Q12H 7 Days Qty: 14 RF: 0 No Action albuterol sulfate 90 mcg/actuation aerosol powdr breath activated 1 inh INHALATION ONCE RF: 0 dextroamphetamine-amphetamine [Adderall] 20 mg tablet 20 mg PO QDAY RF: 0 cyclobenzaprine 5 mg tablet 5 mg PO TID PRN (Reason: muscle spasm) Qty: 14 RF: 0 dudopjpmcs-eayrjzimsbxec-ruxz [Esgic] 50-325-40 mg tablet 1 tab PO Q6H PRN (Reason: pain) Qty: 10 RF: 0 bupropion HCl 150 mg Tablet Extended Release 24 Hr 150 mg PO DAILY 30 Days Qty: 30 RF: 2 trazodone 50 mg Tablet 50 mg PO BEDTIME PRN (Reason: Sleep) 30 Days Qty: 30 RF: 1 Discharge Orders: Discharge ED (Routine); Ordered 08/11/20 Ordered By: Alex Spence Referrals: Racquel Riggins MD [Primary Care Provider] - Discharge Diet: Regular Discharge Activity: Increase activity as tolerated Patient Instructions: Acute Pyelonephritis (ED) Activity Restrictions/Additional Instructions: Follow-up with medical provider as directed in 5 to 7 days for reevaluation. Take full course of antibiotic as prescribed. Take djpz-omc-vajajmi Tylenol or ibuprofen to help with any pain or fevers. Drink plenty of fluids and stay h ydrated. Return to the ER or your medical provider if condition worsens. Please read and understand discharge instructions. If any questions, please ask. Sign Out Sign Out Data: Patient Sign Out occurred on 08/11/20 at 17:04. Patient's care was discussed, and care was transferred from to LICHA Rodriguez. Coding Level of Care Code ED Gas Furnace Installer for Sweta Fwd Exam Comprehensive
[2020-08-11 16:05] LABS: HCG Qualitative Urine. Negative (Negative)
[2020-08-11 16:28] VITALS: BP 102/69; PULSE 112; RESP 18; O2SAT 98
[2020-08-11] MEDS: acetaminophen 500 mg Tablet 1000 MG PO (16:29)
[2020-08-11] MEDS: sodium chloride 0.9% 1,000 ML 999 ML IV (16:34)
[2020-08-11 16:50] LABS: Basophils % 0.3 %; Hematocrit 41.2 % (37.0-47.0); Hemoglobin 14.4 g/dL (11.5-15.3); Lymphocytes # 1.9 10^3/uL (0.8-4.8); Lymphocytes % 12.9 %; Mean Corpuscular Hemoglobin 35.7 pg (28.0-34.0); Mean Corpuscular Volume 102.2 fL (81-99); Mean Platelet Volume 9.8 fL (7.4-10.4); Monocytes # 1.3 10^3/uL (0.2-0.9); Monocytes % 8.9 %; Neutrophils # 11.59 10^3/uL (1.8-7.7); Neutrophils % 77.6 %; Nucleated Red Blood Cells % 0 %; Platelet Count 270 10^3/cmm (130-400); Red Blood Count 4.03 10^6/uL (4.1-5.3); White Blood Count 14.9 10^3/uL (4.0-10.0)
[2020-08-11] MEDS: cefTRIAXone 1,000 MG in sodium chloride 0.9% (plus) 50 ML 100 MG IV (17:04)
[2020-08-11 17:13] LABS: Alanine Aminotransferase 7 U/L (0-33); Albumin Level 3.8 g/dL (3.5-5.2); Alkaline Phosphatase 56 IU/L (35-105); Aspartate Amino Transferase 11 U/L (0-32); Blood Urea Nitrogen 10 mg/dL (6-20); Carbon Dioxide 21 mmol/L (22-29); Chloride 97 mmol/L (98-107); Globulin 3.4 g/dL (1.3-4.6); Glomerular Filtration Rate 101.1 mL/min (90-130); Glucose 70 mg/dL (65-115); Osmolality Calculated 277 mOsm/kg (285-295); Sodium 135 mmol/L (136-145); Total Bilirubin 1.4 mg/dL (0.15-1.2); Total Protein 7.2 g/dL (6.6-8.7)
[2020-08-11 17:20] LABS: Anion Gap 21.1 (5-19)
[2020-08-11 17:21] LABS: Potassium 4.1 mmol/L (3.5-5.1)
[2020-08-11 18:32] LABS: Add Urine Microscopic? YES; Bilirubin Urine Neg (Negative); Blood Urine 3+ (Negative); Glucose Urine UA Norm (Normal); Ketones Urine 3+ (Negative); Leukocyte Esterase Urine 2+ (Negative); Nitrate Urine Negative (Negative); Protein Urine Trace (Negative); Urine Appearance Cloudy (CLEAR); Urine Color Yellow (Yellow); Urobilinogen Urine Norm (Negative); pH Urine 5 (5-7)
[2020-08-11 18:42] LABS: Add Urine Culture? Yes; Bacteria Urine 2+ /hpf; WBC Urine 40-55 /hpf (0-5)
== END 2020-08-11 18:56 | disposition home or self-care (01) ==
PROVIDERS: Nurse Practitioner Family; Emergency Provider Physician Assistant; PCP Family Medicine
DX: N12 Tubulo-interstitial nephritis, not specified as acute or chronic (principal); Z87.891 Personal history of nicotine dependence
CPT/HCPCS: 12345; 36415; 71045; 80053; 81001; 81025; 83605; 85025; 87040; 87086; 96365; 99283; J0696; J7030

== ENCOUNTER 2021-02-14 11:47 | Emergency (ER) | payer SELFPAY ==
--- NOTE | 2021-02-14 11:49 | CTR_ITS ---
PROCEDURE INFORMATION: Exam: CT Head Without Contrast Exam date and time: 02/14/2021 11:49 AM Age: 25 years old Clinical indication: Pain; Visual disturbance; Headache not specified; Patient HX: No HX of trauma; Additional info: REESE, loc, nausea/vomiting, visual changes TECHNIQUE: Imaging protocol: Computed tomography of the head without contrast. Total images: 189 Radiation optimization: All CT scans at this facility use at least one of these dose optimization techniques: automated exposure control; mA and/or kV adjustment per patient size (includes targeted exams where dose is matched to clinical indication); or iterative reconstruction. COMPARISON: MR head wo con* [id number] 03/31/2016 7:28 AM RADIATION DOSE METRICS: Total DLP (mGy-cm): 787.07 FINDINGS: Brain: Senescent calcifications in the basal ganglia. Cerebral ventricles: No ventriculomegaly. Paranasal sinuses: Visualized sinuses are unremarkable. No fluid levels. Mastoid air cells: Visualized mastoid air cells are well aerated. Bones/joints: Unremarkable. No acute fracture. Soft tissues: Unremarkable. CT/CT head wo con* [id number] IMPRESSION: No acute intracranial abnormality. Radiation Dose CTDIVOL = (mGy): DLP = 787.07 (mGy-cm)
[2021-02-14 12:53] VITALS: BP 121/82; PULSE 78; RESP 17; TEMP 36.9; O2SAT 98; BMI 23.0
--- NOTE | 2021-02-14 13:46 | ECG_ITS ---
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
--- NOTE | 2021-02-14 13:49 | W.ED.HA ---
HPI - Headache General: Chief Complaint: Headache Stated Complaint: sharp pain on head, headache Time Seen by Provider: 02/14/21 13:32 History of Present Illness: HPI Narrative: The patient is a 25-year-old female with history of migraines who comes to the ER complaining of a 4-day migraine on the right side of her head. It has been worsening and pulsating and yesterday it was so bad she says she went blind and passed out at her house for 10 to 15 minutes. She laid on the floor for another 45 before she was able to get up and was wobbly after that. She says she woke up this morning and continued to have the headache so she went to an urgent care center who sent her here for evaluation. She has taken no medications for this. She gets migraines once to twice a week she says and takes no medication for it ever because she does not like taking pills at all. She does say this migraine is more severe than her others. Denies any other past medical history. Last menstrual period 1 to 2 weeks ago and she does not think she could be . Denies any allergies. No visual changes in the ER but does complain of a right sided migraine headache. No visual changes in the ED. She is calm and comfortable in the bed. MD elicited complaint: migraine Onset (ago): day(s) (4) Onset description: gradually Location: right Severity: severe Quality & Timing: throbbing Exacerbating factors: none Relieving factors: nothing Context: occurred at rest Associated symptoms: Reports no associated symptoms and nausea; Deny chest pain, confusion, rash or vomiting Review of Systems General: Reports: 10 or more systems reviewed and unremarkable except in HPI and below Const: Denies: fatigue Eyes: Denies: change in vision, blurry vision or eye redness ENMT: Denies: throat pain, swelling of lips/tongue, ear or mastoid pain or nasal congestion Card: Denies: chest pain, palpitations, irregular heart rhythm, edema, dyspnea on exertion or orthopnea Resp: Denies: dyspnea, productive cough or non-productive cough GI: Reports: nausea; Denies: abdominal pain, vomiting, diarrhea or GI cramping : Denies: flank pain, difficulty voiding, urinary frequency or urinary urgency Musc: Denies: neck pain, back pain, extremity pain, joint pain, joint redness, limited range of motion or muscle weakness Skin/Breast: Denies: rash, pruritus, erythema, skin pain or skin tenderness Neuro: Reports: headache(s); Denies: numbness in extremities, weakness in extremities, sensory changes, difficulty walking, dizziness, confusion or Slurred speech present Psych: Denies: anxiety or depression Endo: Denies: polyuria All/Imm: Denies: urticaria, throat swelling or tongue swelling PFSH ED PFSH: Social History Smoking and tobacco status: current every day smoker (vape) Female Reproductive History: Date of last menstrual period: 04/02/20 Physical Exam Const: COMMON NORMALS: no acute distress, average body habitus, patient oriented x3, no limitations, healthy appearing, alert and well nourished GENERAL APPEARANCE: cooperative, comfortable, well kempt and well developed ORIENTATION/CONSCIOUSNESS: Yes awake, Yes oriented to person, Yes oriented to place and Yes oriented to time HENMT: COMMON NORMALS: normocephalic, external ears normal and Normal external nose present HEAD & SCALP: normal to inspection and normocephalic NOSE: Normal external nose present EXTERNAL EAR: Yes external ears normal MOUTH: Normal oral and palatal mucosa present THROAT: posterior oropharynx normal Eye: COMMON NORMALS: Equal, round and reactive pupils present and EOMs intact bilaterally GENERAL EYE: appearance normal, both eyes and all related structures PUPIL: Yes Equal, round and reactive pupils present Neck/C-Spine: COMMON NORMALS: full ROM, no lymphadenopathy, no meningeal signs and no JVD GENERAL: Yes normal visual inspection Lymph: LYMPHATIC: no lymphadenopathy noted Chest: COMMONS NORMALS: normal inspection of the chest and normal palpation of entire chest wall Resp: COMMON NORMALS: normal respiratory effort, No retractions, No use of accessory muscles, clear to auscultation bilaterally and percussion normal EFFORT & INSPECTION: Yes able to speak in complete sentences AUSCULTATION: clear to auscultation bilaterally PERCUSSION: percussion normal Cardio: COMMON NORMALS: no JVD, regular rate, regular rhythm, S1 normal heart sound present, S2 normal heart sound present and Peripheral pulses 2+ throughout RATE: regular rate RHYTHM: regular rhythm HEART SOUNDS: S1 normal heart sound present and S2 normal heart sound present PERIPHERAL PULSES: Peripheral pulses 2+ throughout GI: COMMON NORMALS: Normal to inspection, nondistended, normoactive bowel sounds present, Soft to palpation, non-tender and no masses INSPECTION: Yes normal to inspection PALPATION: Yes Soft to palpation : COMMON NORMALS: Yes no CVA tenderness BLADDER/KIDNEY EXAM: Yes no CVA tenderness Back/Pelvis: COMMON NORMALS: no CVA tenderness, thoracic and lumbar spine normal to inspection, no thoracic nor lumbar tenderness and thoraco-lumbar ROM normal Extremity: COMMON NORMALS: normal to inspection, full ROM, capillary refill normal, no joint enlargement and no pedal edema GENERAL: Yes normal exam except as noted Neuro: COMMON NORMALS: patient oriented x3, CN's II-XII intact bilaterally, moves all extremities, no focal motor deficits, no sensory deficits noted and gait normal SENSORIUM/ORIENTATION: Yes alert, Yes oriented to person, Yes oriented to place and Yes oriented to time MENINGEAL SIGNS: Yes no meningeal signs Psych: COMMON NORMALS: mental status grossly normal, Normal thought process present, cooperative, normal affect and speech normal APPEARANCE: Yes well kempt ATTITUDE: Yes calm SPEECH: Yes normal speech THOUGHT PROCESS: Normal thought process present Skin: COMMON NORMALS: no rashes or lesions noted NARRATIVE SKIN EXAM: No tenderness over the temporal artery bilaterally. GENERAL SKIN EXAM: no rashes or lesions noted Course Vital Signs: Vital signs: Vital Signs Temperature 98.4 F 02/14/21 12:53 Pulse Rate 67 02/14/21 19:00 Respiratory Rate 16 02/14/21 19:00 Blood Pressure 118/78 02/14/21 19:00 Pulse Oximetry 98 02/14/21 19:00 MDM - Headache MDM Narrative: Medical decision making narrative: Being herPatient symptoms were initially concerning for migraine and possibly temporal arteritis as she had a right-sided headache and went blind yesterday. When asked to point to her headache she is pointing more posteriorly towards the back end of her masseter and not over her temporal artery. When asked about the blindness it was more of a syncopal episode. She says she began to feel lightheaded while she was standing and her vision became black in the peripheral bain and then she syncopized for approximately 10 minutes. She laid on the floor for another 45 eyes forced closed because when she opened them the light gave her pain which is more consistent with phonophobia related to her migraine. She was given medication cocktail here which did improve her symptoms dramatically and now her headache has resolved. I discussed with a neurologist at [facility] Dr. Bernabe her case and ESR at 17 which is only a very mild elevation. He thinks based on her age, ESR and presentation it is more typical with a migraine headache. Recommends outpatient follow-up with neurology to possibly get her on a migraine controller medication. I placed a case management referral to help her get an appointment with neurology and return to the ER at anytime with worsening symptoms. She understands the plan of care and will follow up. Lab Data: Labs: Lab Results 02/14/21 02/14/21 02/14/21 Range/Units 14:12 14:12 14:20 WBC 13.0 H (4.0-10.0) 10^3/ uL RBC 3.92 L (4.1-5.3) 10^6/u L Hgb 14.0 (11.5-15.3) g/dL Hct 40.1 (37.0-47.0) % MCV 102.3 H (81-99) fL MCH 35.7 H (28.0-34.0) pg MCHC 34.9 (30.0-36.0) g/dL RDW 11.1 L (12.1-15.1) % Plt Count 257 (130-400) 10^3/c mm MPV 10.5 H (7.4-10.4) fL Neut % (Auto) 81.1 % Lymph % (Auto) 12.3 % [place] % (Auto) 5.4 % Eos % (Auto) 0.7 % Baso % (Auto) 0.2 % Neut # (Auto) 10.52 H (1.8-7.7) 10^3/u L Lymph # (Auto) 1.6 (0.8-4.8) 10^3/u L [place] # (Auto) 0.7 (0.2-0.9) 10^3/u L Eos # (Auto) 0.1 (0.0-0.8) 10^3/u L Baso # (Auto) 0.0 (0.0-0.1) 10^3/u L Nucleated RBC % (a uto) 0 % Nucleated RBCs # 0.0 /100WBC ESR (0-15) mm/hr Sodium (136-145) mmol/L Potassium (3.5-5.1) mmol/L Chloride (98-107) mmol/L Carbon Dioxide (22-29) mmol/L Anion Gap (5-19) BUN (6-20) mg/dL Creatinine (0.5-0.9) mg/dL GFR Calculation (90-130) mL/min Glucose (65-115) mg/dL Calculated Osmolal ity (285-295) mOsm/k g Calcium (8.5-10.5) mg/dL Total Bilirubin (0.15-1.2) mg/dL AST (0-32) U/L ALT (0-33) U/L Alkaline Phosphata se (35-105) IU/L C-Reactive Protein (0.0-4.9) mg/L Total Protein (6.6-8.7) g/dL Albumin (3.5-5.2) g/dL Globulin (1.3-4.6) g/dL HCG, Qual (Negative) Urine Color Yellow (Yellow) Urine Appearance Hazy A (CLEAR) Urine pH 5 (5-7) Ur Specific Gravit y 1.015 (1.005-1.030) Urine Protein Neg (Negative) Urine Glucose (UA) Norm (Normal) Urine Ketones Negative (Negative) Urine Blood Neg (Negative) Urine Nitrate Negative (Negative) Urine Bilirubin 1+ H (Negative) Urine Urobilinogen Norm (Negative) mg/dL Ur Leukocyte Destinee ase 2+ H (Negative) Urine RBC None (0-2) /hpf Urine WBC 10-15 H (0-5) /hpf Ur Squamous Epith Cells 15-25 H (0-5) /hpf Amorphous Sediment Not Reportable Urine Bacteria 1+ H (NONE) /hpf Urine Mucus 1+ /hpf Urine Opiates Scre en Negative (Negative) ng/mL Ur Barbiturates Sc reen Negative (Negative) ng/mL Ur Phencyclidine S crn Negative (Negative) ng/mL Ur Amphetamines Sc reen Negative (Negative) ng/mL U Benzodiazepines Scrn Negative (Negative) ng/mL Urine Cocaine Scre en Negative (Negative) ng/mL U Marijuana (THC) Screen Positive H (Negative) ng/mL 02/14/21 02/14/21 02/14/21 Range/Units 14:20 14:20 14:20 WBC (4.0-10.0) 10^3/ uL RBC (4.1-5.3) 10^6/u L Hgb (11.5-15.3) g/dL Hct (37.0-47.0) % MCV (81-99) fL MCH (28.0-34.0) pg MCHC (30.0-36.0) g/dL RDW (12.1-15.1) % Plt Count (130-400) 10^3/c mm MPV (7.4-10.4) fL Neut % (Auto) % Lymph % (Auto) % [place]rose % (Auto) % Eos % (Auto) % Baso % (Auto) % Neut # (Auto) (1.8-7.7) 10^3/u L Lymph # (Auto) (0.8-4.8) 10^3/u L [place] # (Auto) (0.2-0.9) 10^3/u L Eos # (Auto) (0.0-0.8) 10^3/u L Baso # (Auto) (0.0-0.1) 10^3/u L Nucleated RBC % (a uto) % Nucleated RBCs # /100WBC ESR 17 H (0-15) mm/hr Sodium 137 (136-145) mmol/L Potassium 3.7 (3.5-5.1) mmol/L Chloride 102 (98-107) mmol/L Carbon Dioxide 25 (22-29) mmol/L Anion Gap 13.7 (5-19) BUN 10 (6-20) mg/dL Creatinine 0.4 L (0.5-0.9) mg/dL GFR Calculation 191.5 H (90-130) mL/min Glucose 82 (65-115) mg/dL Calculated Osmolal ity 282 L (285-295) mOsm/k g Calcium 8.5 (8.5-10.5) mg/dL Total Bilirubin 0.7 (0.15-1.2) mg/dL AST 11 (0-32) U/L ALT < 5 (0-33) U/L Alkaline Phosphata se 54 (35-105) IU/L C-Reactive Protein (0.0-4.9) mg/L Total Protein 6.9 (6.6-8.7) g/dL Albumin 4.1 (3.5-5.2) g/dL Globulin 2.8 (1.3-4.6) g/dL HCG, Qual Negative (Negative) Urine Color (Yellow) Urine Appearance (CLEAR) Urine pH (5-7) Ur Specific Gravit y (1.005-1.030) Urine Protein (Negative) Urine Glucose (UA) (Normal) Urine Ketones (Negative) Urine Blood (Negative) Urine Nitrate (Negative) Urine Bilirubin (Negative) Urine Urobilinogen (Negative) mg/dL Ur Leukocyte Destinee ase (Negative) Urine RBC (0-2) /hpf Urine WBC (0-5) /hpf Ur Squamous Epith Cells (0-5) /hpf Amorphous Sediment Urine Bacteria (NONE) /hpf Urine Mucus /hpf Urine Opiates Scre en (Negative) ng/mL Ur Barbiturates Sc reen (Negative) ng/mL Ur Phencyclidine S crn (Negative) ng/mL Ur Amphetamines Sc reen (Negative) ng/mL U Benzodiazepines Scrn (Negative) ng/mL Urine Cocaine Scre en (Negative) ng/mL U Marijuana (THC) Screen (Negative) ng/mL 02/14/21 Range/Units 14:20 WBC (4.0-10.0) 10^3/ uL RBC (4.1-5.3) 10^6/u L Hgb (11.5-15.3) g/dL Hct (37.0-47.0) % MCV (81-99) fL MCH (28.0-34.0) pg MCHC (30.0-36.0) g/dL RDW (12.1-15.1) % Plt Count (130-400) 10^3/c mm MPV (7.4-10.4) fL Neut % (Auto) % Lymph % (Auto) % [place] % (Auto) % Eos % (Auto) % Baso % (Auto) % Neut # (Auto) (1.8-7.7) 10^3/u L Lymph # (Auto) (0.8-4.8) 10^3/u L [place] # (Auto) (0.2-0.9) 10^3/u L Eos # (Auto) (0.0-0.8) 10^3/u L Baso # (Auto) (0.0-0.1) 10^3/u L Nucleated RBC % (a uto) % Nucleated RBCs # /100WBC ESR (0-15) mm/hr Sodium (136-145) mmol/L Potassium (3.5-5.1) mmol/L Chloride (98-107) mmol/L Carbon Dioxide (22-29) mmol/L Anion Gap (5-19) BUN (6-20) mg/dL Creatinine (0.5-0.9) mg/dL GFR Calculation (90-130) mL/min Glucose (65-115) mg/dL Calculated Osmolal ity (285-295) mOsm/k g Calcium (8.5-10.5) mg/dL Total Bilirubin (0.15-1.2) mg/dL AST (0-32) U/L ALT (0-33) U/L Alkaline Phosphata se (35-105) IU/L C-Reactive Protein 1.5 (0.0-4.9) mg/L Total Protein (6.6-8.7) g/dL Albumin (3.5-5.2) g/dL Globulin (1.3-4.6) g/dL HCG, Qual (Negative) Urine Color (Yellow) Urine Appearance (CLEAR) Urine pH (5-7) Ur Specific Gravit y (1.005-1.030) Urine Protein (Negative) Urine Glucose (UA) (Normal) Urine Ketones (Negative) Urine Blood (Negative) Urine Nitrate (Negative) Urine Bilirubin (Negative) Urine Urobilinogen (Negative) mg/dL Ur Leukocyte Destinee ase (Negative) Urine RBC (0-2) /hpf Urine WBC (0-5) /hpf Ur Squamous Epith Cells (0-5) /hpf Amorphous Sediment Urine Bacteria (NONE) /hpf Urine Mucus /hpf Urine Opiates Scre en (Negative) ng/mL Ur Barbiturates Sc reen (Negative) ng/mL Ur Phencyclidine S crn (Negative) ng/mL Ur Amphetamines Sc reen (Negative) ng/mL U Benzodiazepines Scrn (Negative) ng/mL Urine Cocaine Scre en (Negative) ng/mL U Marijuana (THC) Screen (Negative) ng/mL Discharge Plan Discharge Patient Disposition: Home Clinical Impression: Migraine Condition: Stable Prescriptions: New Medrol (Perfecto) 4 mg tablets,dose pack See Rx Instructions .ROUTE .COMPLEX Qty: 21 RF: 0 ondansetron 4 mg tablet,disintegrating 4 mg PO Q8H 4 Days Qty: 12 RF: 0 No Action albuterol sulfate 2.5 mg /3 mL (0.083 %) Solution For Nebulization 2.5 mg inhalation PRN RF: 0 Ventolin HFA 90 mcg/actuation Hfa Aerosol Inhaler 2 puff INHALATION Q6H PRN (Reason: Shortness Of Breath) RF: 0 Discharge Orders: Discharge ED (Routine); Ordered 02/14/21 Ordered By: Jim Hernandez Referrals: Racquel Riggins MD [Primary Care Provider] - Discharge Diet: Advance as tolerated Discharge Activity: Resume usual activity Patient Instructions: Acute Headache (ED), Opioid Safety Activity Restrictions/Additional Instructions: Your headache has improved which is encouraging. Please take Tylenol and ibuprofen at home to help with your headaches. Drink lots of fluids as well. You may use the Zofran to help with nausea. Please take the steroid pack to help with the inflammation and it may help your headache as well. I have placed a case management referral to help you get an appointment with a neurologist to set up care there as well. They should be calling you Tuesday or Tuesday to help get you an appointment. Return to the ER at anytime with worsening symptoms. Please be sure to discuss with your primary care physician and neurologist the possibility of temporal arteriolitis. Your ESR is not significantly elevated but slightly elevated at 17 which is less concerning but still should be a discussion with a neurologist. Return to the ER at anytime with worsening symptoms Coding Level of Care Code ED [employer] Remittance Clerk for Sweta Fwnina Exam Comprehensive
[2021-02-14] MEDS: acetaminophen 325 mg Tablet 650 MG PO (14:22)
[2021-02-14] MEDS: ketorolac 30 mg/mL INJ 15 MG IVP (14:22)
[2021-02-14] MEDS: ondansetron 2 mg/ML SDV 2 mL 4 MG IVP (14:23)
[2021-02-14] MEDS: sodium chloride 0.9% 1,000 ML 999 ML IV (14:23)
[2021-02-14 15:13] LABS: Basophils % 0.2 %; Eosinophils # 0.1 10^3/uL (0.0-0.8); Eosinophils % 0.7 %; Hematocrit 40.1 % (37.0-47.0); Lymphocytes # 1.6 10^3/uL (0.8-4.8); Lymphocytes % 12.3 %; Mean Corpuscular HGB Conc 34.9 g/dL (30.0-36.0); Mean Corpuscular Hemoglobin 35.7 pg (28.0-34.0); Mean Corpuscular Volume 102.3 fL (81-99); Mean Platelet Volume 10.5 fL (7.4-10.4); Monocytes # 0.7 10^3/uL (0.2-0.9); Monocytes % 5.4 %; Neutrophils # 10.52 10^3/uL (1.8-7.7); Neutrophils % 81.1 %; Nucleated Red Blood Cells % 0 %; Platelet Count 257 10^3/cmm (130-400); Red Blood Count 3.92 10^6/uL (4.1-5.3); Red Cell Distribution Width 11.1 % (12.1-15.1)
[2021-02-14 15:14] LABS: HCG, Serum Qual Negative (Negative)
[2021-02-14 15:19] LABS: Alanine Aminotransferase < 5 U/L (0-33); Albumin Level 4.1 g/dL (3.5-5.2); Alkaline Phosphatase 54 IU/L (35-105); Anion Gap 13.7 (5-19); Aspartate Amino Transferase 11 U/L (0-32); Blood Urea Nitrogen 10 mg/dL (6-20); Calcium 8.5 mg/dL (8.5-10.5); Carbon Dioxide 25 mmol/L (22-29); Chloride 102 mmol/L (98-107); Globulin 2.8 g/dL (1.3-4.6); Glomerular Filtration Rate 191.5 mL/min (90-130); Glucose 82 mg/dL (65-115); Osmolality Calculated 282 mOsm/kg (285-295); Potassium 3.7 mmol/L (3.5-5.1); Sodium 137 mmol/L (136-145); Total Bilirubin 0.7 mg/dL (0.15-1.2); Total Protein 6.9 g/dL (6.6-8.7)
[2021-02-14 15:40] VITALS: BP 115/70; PULSE 68; RESP 16; O2SAT 98
[2021-02-14] MEDS: promethazine 25 mg/mL SDV 1 mL 50 MG IM (15:44)
[2021-02-14 15:45] LABS: Add Urine Microscopic? YES; Bilirubin Urine 1+ (Negative); Blood Urine Neg (Negative); Glucose Urine UA Norm (Normal); Ketones Urine Negative (Negative); Leukocyte Esterase Urine 2+ (Negative); Nitrate Urine Negative (Negative); Protein Urine Neg (Negative); Specific Gravity, Urine 1.015 (1.005-1.030); Urine Appearance Hazy (CLEAR); Urine Color Yellow (Yellow); Urobilinogen Urine Norm (Negative); pH Urine 5 (5-7)
[2021-02-14 15:46] LABS: Bacteria Urine 1+ /hpf; Mucus Urine 1+ /hpf; Squamous Epithelial Cell Urine 15-25 /hpf (0-5)
[2021-02-14 15:47] LABS: Add Urine Culture? No
[2021-02-14 16:13] LABS: C Reactive Protein 1.5 mg/L (0.0-4.9)
[2021-02-14 16:15] VITALS: BP 98/64; PULSE 69; RESP 18; O2SAT 96
[2021-02-14 17:00] VITALS: BP 113/64; PULSE 65; RESP 16; O2SAT 98
[2021-02-14 17:51] LABS: Erythrocyte Sedimentation Rate 17 mm/hr (0-15)
[2021-02-14 18:35] LABS: Amphetamines Screen Urine Negative (Negative); Barbiturates Screen Urine Negative (Negative); Benzodiazepines Screen Urine Negative (Negative); Cocaine Screen Urine Negative (Negative); Opiate Screen Urine Negative (Negative); PCP Screen Urine Negative (Negative); THC Screen Urine Positive (Negative)
[2021-02-14 19:00] VITALS: BP 118/78; PULSE 67; RESP 16; O2SAT 98
--- NOTE | 2021-02-17 09:00 | DCPLANNER ---
telecommunications project manager had message to schedule a follow up appointment for patient with neurology for migraines. telecommunications project manager emailed patients information to the neurology clinic. Patients information will be printed and reviewed. Clinic will call patient with appointment information.
--- NOTE | 2021-02-18 07:35 | DCPLANNER ---
Patient has a follow up appointment scheduled for March at 11:00 Dr. Hardy. Clinic will call patient with appointment information.
--- NOTE | 2021-04-10 08:14 | DCPLANNER ---
Patient had a follow up appointment scheduled with Dr. Hardy - patient did attend appointment.
== END 2021-02-14 20:47 | disposition home or self-care (01) ==
PROVIDERS: Emergency Provider Family Medicine; PCP Family Medicine
DX: G43.909 Migraine, unspecified, not intractable, without status migrainosus (principal); F17.210 Nicotine dependence, cigarettes, uncomplicated
CPT/HCPCS: 70450; 80053; 80306; 81001; 84703; 85025; 85651; 86140; 93005; 96361; 96372; 96374; 96375; 99284; J1885; J2405; J2550; J2930; J7030

== ENCOUNTER → 2021-03-17 14:12 | Outpatient (BNVA) | payer SELFPAY | PROVIDERS: PCP Family Medicine; Referring Provider Family Medicine; Visit Provider Specialist | DX: G43.711 Chronic migraine without aura, intractable, with status migrainosus (principal); R20.0 Anesthesia of skin; R20.2 Paresthesia of skin; D75.89 Other specified diseases of blood and blood-forming organs | CPT/HCPCS: 99204 ==

== ENCOUNTER 2021-03-21 10:08 | Outpatient (CLI) | payer SELFPAY ==
[2021-03-21 11:45] LABS: Vitamin B12 365 pg/mL (232-1245)
[2021-03-21 17:49] LABS: LAB Peripheral Smear Sent for Review
== END 2021-03-21 10:09 | disposition home or self-care (01) ==
PROVIDERS: PCP Family Medicine; Visit Provider Specialist
DX: R20.0 Anesthesia of skin (principal); R20.2 Paresthesia of skin
CPT/HCPCS: 36415; 80500; 82607

== ENCOUNTER 2021-10-25 15:25 | Emergency (ER) | payer MEDICAID, SELFPAY ==
[2021-10-25 15:37] VITALS: BP 124/79; PULSE 100; RESP 18; TEMP 37.3; O2SAT 95; BMI 22.3
--- NOTE | 2021-10-25 16:02 | ED_ITS ---
HPI - General Adult General: Chief complaint: Dental/Oral Stated complaint: dental pain/infection Time Seen by Provider: 10/25/21 15:33 History of Present Illness: Patient is a 25-year-old female with history of recent tooth extraction presenting to the emergency room with right-sided facial pain and gumline pain following the extraction x 7 days. Patient was seen and evaluated 7 days ago, diagnosed with dental Infection. Patient received amoxicillin has been taking medicine since then without any improvement in symptoms. Because of persistent symptoms and mild facial swelling, patient decided come to the emergency room for further evaluation. Patient denies drooling, hoarseness of voice, difficulty swallowing or pain with jaw movement. Onset:7 days ago Duration: 7 days Location:home Severity:mild/moderate Associated symptoms: Deny chest pain, dyspnea, nausea, rash, palpitations or vomiting Review of Systems Const: Denies: fever(s) or chills Eyes: Denies: change in vision ENMT: Reports: mouth pain (+L lower gumline pain and facial pain) Card: Denies: chest pain or palpitations Resp: Denies: dyspnea or non-productive cough GI: Denies: abdominal pain, nausea, vomiting or diarrhea : Denies: dysuria Musc: Denies: extremity pain Skin/Breast: Denies: rash or new lesions Neuro: Denies: weakness in extremities Psych: Reports: other (Normal mood) Adonay/Lymph: Denies: easy bruising PFSH ED PFSH: Medical History No pertinent past medical history Denies diabetes, asthma, hypertension, seizures, DVT/PE PCP: Dr. Racquel Riggins Surgical History No history of previous surgery Family History Grandfather Hypertension paternal Diabetes paternal Heart disease paternal Denies family history of Colon cancer Ovarian cancer Hyperlipidemia Breast cancer Uterine cancer Thyroid condition Stroke Physical Exam Const: COMMON NORMALS: alert HENMT: COMMON NORMALS: atraumatic HEAD & SCALP: atraumatic MOUTH: moist mucous membranes not abnormal OTHER: +mild L mandibular gumline tenderness to palpation without any palpable fluctuance/indurance +no trismus +no tongue protrusion or tongue elevation, no submandibular swelling +posterior oropharygnx intact Eye: COMMON NORMALS: EOMs intact bilaterally and conjunctivae normal CONJUNCTIVA: Yes conjunctivae normal Neck/C-Spine: COMMON NORMALS: full ROM and supple Resp: COMMON NORMALS: normal respiratory effort and clear to auscultation bilaterally AUSCULTATION: clear to auscultation bilaterally Cardio: COMMON NORMALS: regular rate RATE: regular rate GI: COMMON NORMALS: Soft to palpation and non-tender PALPATION: Yes Soft to palpation Extremity: COMMON NORMALS: full ROM Neuro: SENSORIUM/ORIENTATION: Yes alert MOTOR EXAM: No Abnormal motor strength present and Other motor observations present (no focal motor deficits) Psych: COMMON NORMALS: speech normal SPEECH: Yes normal speech MOOD & AFFECT: Yes euthymic mood Course Vital Signs: Vital signs: Vital Signs Temperature 99.1 F 10/25/21 15:37 Pulse Rate 100 10/25/21 15:37 Respiratory Rate 18 10/25/21 15:37 Blood Pressure 124/79 10/25/21 15:37 Pulse Oximetry 95 10/25/21 15:37 MDM - General Adult Medical Decision Making 25-year-old female presents emergency room gumline pain after dental extraction for dental cavity. Patient appears to have possible dental absces with mild gumline involvement. There is no palpable fluctuance requiring I&D. No suspicion for ludwign's angina or other significant oral/facial infection. Given the fact the patient's Amoxil has not been working, I have switch patient to Augmentin and clindamycin. Patient request for suspension formulation of medication for comfort of taking them. Patient is aware that she needs to be reassessed in 2 to 3 days by a provider (PCP or ER) to ensure that there is no progression to a drainable abscess of the face/gumline. Patient verbalizes understanding. Rx tylenol, augmentin and clindamycin Disposition: Discharge. Patient counseled regarding diagnostic impression, treatment plan. Patient given ED strict return precautions to return for continuation, worsening, or development of new symptoms. Instructed to f/u w/ PCP regarding symptoms today. Patient verbalized understanding. Patient struck this, the emergency room should she have any concern for airway compromise, or worsening oral facial swelling, Marvin angina or other worsening signs of infection. Discharge Plan Discharge Patient Disposition: Home Clinical Impression: Dental cavity, Oral pain Condition: Stable Prescriptions: New clindamycin palmitate HCl 75 mg/5 mL recon soln 20 ml PO Q8H 7 Days Qty: 420 0RF acetaminophen 650 mg/20.3 mL solution 640.3941 mg PO Q6H PRN (Reason: fever) 5 Days Qty: 609 0RF Augmentin 250-62.5 mg/5 mL suspension for reconstitution 10 ml PO BID 7 Days Qty: 140 0RF No Action Mirena 20 mcg/24 hours (6 yrs) 52 mg intrauterine device intrauterine .every 6 years 0RF Label Comments: Inserted 02/15/2017 Discharge Orders: Discharge ED (Routine); Ordered 10/25/21 Ordered By: Sadaf Celaya Referrals: Racquel Riggins MD [Primary Care Provider] - Discharge Diet: Advance as tolerated Discharge Activity: Increase activity as tolerated Patient Instructions: Dental Abscess (ED) Activity Restrictions/Additional Instructions: Please follow-up with your primary care provider in the next 2 to 3 days for reassessment to ensure that the antibiotics is working. Come back to the emergency room have any facial swelling, difficulty chewing, difficulty eating, fever, inability to speak, difficulty breathing, or any new or concerning complaints. Coding Level of Care Code ED Passenger Car Inspector for Sweta Young
[2021-10-25] MEDS: lidocaine 2% viscous 1.667 ML, diphenhydrAMINE oral liq 4.165 MG, aluminum-mag hydrox-s... MUCOUS MEM (16:11)
[2021-10-25 16:12] VITALS: BP 137/90; PULSE 68; RESP 16; O2SAT 100
[2021-10-25 16:19] VITALS: BP 137/90; PULSE 86; RESP 18; O2SAT 100
== END 2021-10-25 16:21 | disposition home or self-care (01) ==
PROVIDERS: Emergency Provider Emergency Medicine; PCP Family Medicine
DX: K08.89 Other specified disorders of teeth and supporting structures (principal); K02.9 Dental caries, unspecified
CPT/HCPCS: 99283

== ENCOUNTER → 2023-05-16 09:35 | Outpatient (BNVA) | payer MEDICAID, SELFPAY | PROVIDERS: PCP Family Medicine; Visit Provider Surgery | DX: K52.9 Noninfective gastroenteritis and colitis, unspecified (principal); Z12.11 Encounter for screening for malignant neoplasm of colon; R63.4 Abnormal weight loss | CPT/HCPCS: 36415; 82784; 83516; 84443; 86140 ==

== ENCOUNTER 2023-05-24 07:36 | Day surgery (SDC) | payer MEDICAID, SELFPAY ==
--- NOTE | 2023-05-24 06:40 | P.HPUD_ITS ---
Surgery/Procedure H&P Update DATE OF PROCEDURE: May 24, 2023 DATE H&P PERFORMED: 05/16/23 H&P UPDATE INFORMATION: I have reviewed H&P completed within last 30 days, I have examined patient prior to procedure, No changes to prior documentation and H&P is in [facility] EMR on date indicated PLANNED PROCEDURE: Operation Date: 05/24/23 08:25 Proposed Procedures p [id number] egd [id number] colon G0121 screen colon A risk R63.4,k52.9(Not Applicable) - Sin Queen MD s Colonoscopy(Not Applicable) - Sin Queen MD
[2023-05-24 07:45] VITALS: BMI 19.7
[2023-05-24 07:53] VITALS: BP 113/65; PULSE 63; RESP 17; TEMP 36.6; O2SAT 100
[2023-05-24] MEDS: sodium chloride 0.9% 1,000 ML 30 ML IV (08:00)
[2023-05-24 08:04] LABS: OR HCG Qualitative Urine Negative (Negative)
--- NOTE | 2023-05-24 08:45 | ANES.PREANE2 ---
Pre-Anesthetic Assessment Height/Weight: Height 1.63 m Weight 52.163 kg Temp Pulse Resp BP Pulse Ox O2 Del Method 97.9 F 63 17 113/65 100 Room Air 05/24/23 07:53 05/24/23 07:53 05/24/23 07:53 05/24/23 07:53 05/24/23 07:53 05/24/23 07:53 Operation Date: 05/24/23 08:25 Proposed Procedures p [id number] egd [id number] colon G0121 screen colon A risk R63.4,k52.9(Not Applicable) - Sin Queen MD s Colonoscopy(Not Applicable) - Sin Queen MD Familial anesthetic complications: none Was Beta Angie taken within 24 hours: N/A Was Clonidine taken within 24 hours: N/A Last intake: Intake Last Liquid Date 05/23/23 Last Liquid Time 22:00 Last Solid Date 05/22/23 Last Solid Time 18:30 Social Tobacco and No alcohol Exam alert, oriented x 3, clear to auscultation bilaterally and regular rate & rhythm Airway Submandibular: within normal limits Cervical ROM: within normal limits Mallampati: Class II Dentition: full Neuropsych Headache Anesthetic Plan ASA status: 2 Medications/Allergies Allergies Allergy/AdvReac Type Severity Reaction Status Date / Time No Known Allergies Allergy Verified 05/24/23 07:44 Current Medications Generic Name Dose Route Start Last Admin Trade Name Freq PRN Reason Stop Dose Admin Sodium Chloride 1,000 mls @ 30 mls/hr 05/24/23 07:45 05/24/23 08:00 Sodium Chloride 0.9% IV 30 mls/hr .Q24H KATIE Administration PFSH Anesthesia Medical History No pertinent past medical history Denies diabetes, asthma, hypertension, seizures, DVT/PE PCP: Dr. Racquel Riggins Surgical History No history of previous surgery Family History Grandfather Hypertension paternal Diabetes paternal Heart disease paternal Denies family history of Colon cancer Ovarian cancer Hyperlipidemia Breast cancer Uterine cancer Thyroid disease Stroke Social History Substance/Drug Use: current Data Anesthesia Cardiac Studies: No Data to Display
[2023-05-24 09:04] VITALS: BP 97/66; PULSE 87; RESP 18; TEMP 36.1; O2SAT 97
[2023-05-24 09:22] VITALS: BP 87/49; PULSE 70; RESP 18; O2SAT 100
[2023-05-24 09:30] VITALS: BP 88/49; PULSE 63; RESP 18; O2SAT 100
--- NOTE | 2023-05-24 09:32 | ANE.PACU2 ---
Inpatient post-anesthesia follow up: Airway intact: Yes Vital signs: Temperature 97.0 F Pulse Rate 63 Respiratory Rate 18 Blood Pressure 88/49 Pulse Oximetry 100 Oxygen Delivery Me thod Room Air Oxygen Flow Rate Fraction of Inspir ed Oxygen Hydration adequate: Yes Nausea and vomiting: No Pain level: 1 Mental status: Baseline
[2023-05-24 09:33] VITALS: BP 94/68
== END 2023-05-24 09:57 | disposition home or self-care (01) ==
PROVIDERS: Anesthesiology; PCP Family Medicine; Visit Provider Surgery
PROC: 0DJ08ZZ Inspection of Upper Intestinal Tract, Via Natural or Artificial Opening Endoscopic (ICD-10-PCS; CPT 43235; principal; 2023-05-24 08:25)
PROC: 0DJD8ZZ Inspection of Lower Intestinal Tract, Via Natural or Artificial Opening Endoscopic (ICD-10-PCS; CPT 45330; 2023-05-24 08:25)
DX: K52.9 Noninfective gastroenteritis and colitis, unspecified (principal); R63.4 Abnormal weight loss; Z68.1 Body mass index [BMI] 19.9 or less, adult; K29.50 Unspecified chronic gastritis without bleeding
CPT/HCPCS: 43239; 45331; 81025; 84703; 88305; 88342; J2704; J7030

== ENCOUNTER → 2023-07-28 16:08 | Outpatient (BNVA) | payer SELFPAY | PROVIDERS: PCP Family Medicine; Visit Provider Nurse Practitioner Women's Health | DX: Z80.49 Family history of malignant neoplasm of other genital organs (principal); R10.2 Pelvic and perineal pain | CPT/HCPCS: 87491; 87591; 87624 ==

== ENCOUNTER → 2023-09-08 08:06 | Outpatient (BNVA) | payer SELFPAY | PROVIDERS: PCP Family Medicine; Visit Provider Obstetrics & Gynecology | DX: R87.619 Unspecified abnormal cytological findings in specimens from cervix uteri (principal) | CPT/HCPCS: 81025; 88305 ==